=== PATIENT | male | born 1990 | race Two or more races ===

== ENCOUNTER 2021-04-25 15:26 | Inpatient (IN) | payer OTHER ==
[~2021-04-25] VITALS: Ht 193 cm; Wt 123.5 kg
[2021-04-25 16:33] LABS: Basophils # (auto) 0 10 ^3/uL (0-0.2); Basophils % (auto) 0.7 % (0.0-2.0); Eosinophils # (auto) 0.2 10 ^3/uL (0-0.8); Eosinophils % (auto) 3.3 % (0.0-7.0); Hematocrit 43.9 % (41.0-53.0); Hemoglobin 15.3 g/dL (13.5-17.5); Lymphocytes % (auto) 29.7 % (10.0-50.0); Mean Corpuscular Hemoglobin 30.1 pg (28.0-32.0); Mean Corpuscular Hgb Conc. 34.9 g/dL (32.0-36.0); Mean Corpuscular Volume 86.2 fL (80.0-100.0); Monocytes # (auto) 0.7 10 ^3/uL (0-1.3); Monocytes % (auto) 10.3 % (0.0-12.0); Neutrophils # (auto) 3.8 10 ^3/uL (1.6-8.6); Nucleated Red Blood Cells % 0.2 %; Red Blood Cells 5.09 10^6/uL (4.5-5.90); Red Cell Distribution Width 13.4 % (11.8-14.3); White Blood Cell 6.7 10^3/uL (4.4-10.8)
[2021-04-25 16:50] LABS: Albumin 4.3 g/dL (3.4-5.0); Anion Gap 8 (5-15); Blood Urea Nitrogen 14 mg/dL (7-18); Calcium 9.2 mg/dL (8.5-10.1); Carbon Dioxide 24 mmol/L (21-32); Chloride 104 mmol/L (98-107); Potassium 3.2 mmol/L (3.5-5.1); Sodium 136 mmol/L (136-145)
[2021-04-25 16:55] LABS: Alanine Aminotransferase 24 U/L (16-61); Alkaline Phosphatase 77 U/L (45-117); Aspartate Aminotransferase 22 U/L (15-37); BUN/Creatinine Ratio 12.2; Bilirubin, Total 0.6 mg/dL (0.2-1.0); GFR African American 95 mL/min; GFR Non-African American 78 mL/min; Glucose 114 mg/dL (74-106); Magnesium 2.6 mg/dL (1.6-2.6); Total Protein 9.1 g/dL (6.4-8.2)
[2021-04-25] MEDS ORDERED: ACETAMINOPHEN 325 MG TAB PO PRN (22:30)
[2021-04-25] MEDS ORDERED: HEPARIN SODIUM (PORCINE) 5000 UNITS/ML 1ML VIAL IV ONE (22:30)
[2021-04-25] MEDS ORDERED: ONDANSETRON HCL 4 MG/2 ML VIAL IV PRN (22:30)
[2021-04-25] MEDS ORDERED: HYDROcodone-ACET 5/325MG TAB PO PRN (22:30)
[2021-04-25] MEDS ORDERED: MORPHINE SULFATE INJECTION 2 MG/ML SYRG IV PRN (22:30)
[2021-04-25] MEDS ORDERED: HYDROmorphone HCL 2 MG/ML VL IV PRN (22:30)
[2021-04-25] MEDS ORDERED: NITROGLYCERIN 0.4 MG SL TAB SL PRN (22:30)
[2021-04-25 23:06] LABS: Basophils # (auto) 0 10 ^3/uL (0-0.2); Basophils % (auto) 0.5 % (0.0-2.0); Eosinophils # (auto) 0.1 10 ^3/uL (0-0.8); Eosinophils % (auto) 1.1 % (0.0-7.0); Lymphocytes % (auto) 27.4 % (10.0-50.0); Mean Corpuscular Hemoglobin 29.7 pg (28.0-32.0); Mean Corpuscular Hgb Conc. 34.2 g/dL (32.0-36.0); Mean Corpuscular Volume 87.1 fL (80.0-100.0); Monocytes # (auto) 0.8 10 ^3/uL (0-1.3); Monocytes % (auto) 10.6 % (0.0-12.0); Neutrophils # (auto) 4.5 10 ^3/uL (1.6-8.6); Neutrophils % (auto) 60.4 % (37.0-80.0); Red Blood Cells 5.06 10^6/uL (4.5-5.90); Red Cell Distribution Width 13.2 % (11.8-14.3); White Blood Cell 7.4 10^3/uL (4.4-10.8)
[2021-04-25 23:19] LABS: INR 1.05 (0.9-1.15)
[2021-04-26] MEDS: HEPARIN DRIP/D5W 100UNITS/ML 250 ML IV SCH ×4 (01:15→21:30)
[2021-04-26] MEDS: LISINOPRIL 20 MG TAB PO SCH ×2 (10:00→21:06)
[2021-04-26] MEDS: PANTOPRAZOLE 40 MG TAB PO SCH ×2 (10:00→21:06)
[2021-04-26] MEDS: amLODIPine BESYLATE 5 MG TAB PO SCH ×2 (10:00→21:05)
[2021-04-26 10:10] LABS: INR 1.1 (0.9-1.15)
[2021-04-26 18:46] LABS: INR 1.09 (0.9-1.15)
[2021-04-26 18:54] LABS: Partial Thromboplastin Time 81.4 sec (23.6-33.0)
[2021-04-26 20:00] VITALS: BP 130/78
[2021-04-26 22:00] VITALS: BP 130/78
[2021-04-27 02:06] LABS: INR 1.06 (0.9-1.15); Partial Thromboplastin Time 69.5 sec (23.6-33.0)
[2021-04-27 05:00] VITALS: BP 117/63
[2021-04-27 08:00] VITALS: BP 110/67
[2021-04-27 08:20] LABS: Basophils # (auto) 0.1 10 ^3/uL (0-0.2); Basophils % (auto) 0.8 % (0.0-2.0); Eosinophils # (auto) 0.2 10 ^3/uL (0-0.8); Eosinophils % (auto) 2.6 % (0.0-7.0); Hematocrit 43.7 % (41.0-53.0); Lymphocytes # (auto) 2.6 10 ^3/uL (0.4-5.4); Lymphocytes % (auto) 35.9 % (10.0-50.0); Mean Corpuscular Hemoglobin 29.8 pg (28.0-32.0); Mean Corpuscular Hgb Conc. 34.3 g/dL (32.0-36.0); Mean Corpuscular Volume 86.9 fL (80.0-100.0); Monocytes # (auto) 0.6 10 ^3/uL (0-1.3); Monocytes % (auto) 8.4 % (0.0-12.0); Neutrophils # (auto) 3.8 10 ^3/uL (1.6-8.6); Neutrophils % (auto) 52.3 % (37.0-80.0); Nucleated Red Blood Cells % 0.1 %; Red Blood Cells 5.03 10^6/uL (4.5-5.90); Red Cell Distribution Width 13.4 % (11.8-14.3); White Blood Cell 7.3 10^3/uL (4.4-10.8)
[2021-04-27 08:48] LABS: INR 1.1 (0.9-1.15)
[2021-04-27 08:56] LABS: Partial Thromboplastin Time 72.7 sec (23.6-33.0)
[2021-04-27] MEDS: PANTOPRAZOLE 40 MG TAB PO SCH ×2 (09:29→22:26)
[2021-04-27] MEDS: amLODIPine BESYLATE 5 MG TAB PO SCH ×2 (09:29→22:26)
[2021-04-27] MEDS: LISINOPRIL 20 MG TAB PO SCH ×2 (09:29→22:27)
[2021-04-27] MEDS ORDERED: IOHEXOL 300 MG/ML 100ML BOTTLE IJ ONE (11:41)
[2021-04-27] MEDS: HEPARIN DRIP/D5W 100UNITS/ML 250 ML IV SCH (12:23)
[2021-04-27 13:00] VITALS: BP 119/70
[2021-04-27 16:00] VITALS: BP 115/67
[2021-04-27 20:00] VITALS: BP 124/69
[2021-04-27 22:00] VITALS: BP 124/69
[2021-04-28] MEDS: HEPARIN DRIP/D5W 100UNITS/ML 250 ML IV SCH ×3 (01:25→18:23)
[2021-04-28 05:00] VITALS: BP 129/67
[2021-04-28 05:12] LABS: INR 1.1 (0.9-1.15)
[2021-04-28 05:29] LABS: Basophils # (auto) 0.1 10 ^3/uL (0-0.2); Basophils % (auto) 0.9 % (0.0-2.0); Eosinophils # (auto) 0.2 10 ^3/uL (0-0.8); Eosinophils % (auto) 2.3 % (0.0-7.0); Hemoglobin 14.6 g/dL (13.5-17.5); Lymphocytes # (auto) 3.2 10 ^3/uL (0.4-5.4); Lymphocytes % (auto) 35.3 % (10.0-50.0); Mean Corpuscular Hemoglobin 29.7 pg (28.0-32.0); Mean Corpuscular Hgb Conc. 33.9 g/dL (32.0-36.0); Mean Corpuscular Volume 87.8 fL (80.0-100.0); Monocytes # (auto) 0.7 10 ^3/uL (0-1.3); Monocytes % (auto) 7.7 % (0.0-12.0); Neutrophils # (auto) 4.8 10 ^3/uL (1.6-8.6); Neutrophils % (auto) 53.8 % (37.0-80.0); Nucleated Red Blood Cells % 0.1 %; Red Cell Distribution Width 13.7 % (11.8-14.3)
[2021-04-28 08:00] VITALS: BP 119/66
[2021-04-28] MEDS: LISINOPRIL 20 MG TAB PO SCH ×2 (10:00→22:00)
[2021-04-28] MEDS: amLODIPine BESYLATE 5 MG TAB PO SCH ×2 (10:00→22:00)
[2021-04-28] MEDS: PANTOPRAZOLE 40 MG TAB PO SCH ×2 (10:00→22:00)
[2021-04-28 11:30] LABS: INR 1.1 (0.9-1.15)
[2021-04-28 12:00] VITALS: BP 126/69
[2021-04-28 16:00] VITALS: BP 120/66
[2021-04-28 17:14] LABS: INR 1.09 (0.9-1.15)
[2021-04-28 17:25] LABS: Partial Thromboplastin Time 77.7 sec (23.6-33.0)
[2021-04-28 20:00] VITALS: BP 120/64
[2021-04-28 22:00] VITALS: BP 120/64
[2021-04-29 01:03] LABS: INR 1.1 (0.9-1.15); Partial Thromboplastin Time 63.4 sec (23.6-33.0)
[2021-04-29 05:00] VITALS: BP 106/77
[2021-04-29 05:38] LABS: Basophils # (auto) 0 10 ^3/uL (0-0.2); Basophils % (auto) 0.5 % (0.0-2.0); Eosinophils # (auto) 0.2 10 ^3/uL (0-0.8); Eosinophils % (auto) 2.5 % (0.0-7.0); Hematocrit 43.8 % (41.0-53.0); Hemoglobin 15.1 g/dL (13.5-17.5); Lymphocytes # (auto) 3.5 10 ^3/uL (0.4-5.4); Lymphocytes % (auto) 38.3 % (10.0-50.0); Mean Corpuscular Hemoglobin 30.2 pg (28.0-32.0); Mean Corpuscular Hgb Conc. 34.5 g/dL (32.0-36.0); Mean Corpuscular Volume 87.4 fL (80.0-100.0); Monocytes # (auto) 0.7 10 ^3/uL (0-1.3); Monocytes % (auto) 7.8 % (0.0-12.0); Neutrophils # (auto) 4.6 10 ^3/uL (1.6-8.6); Neutrophils % (auto) 50.9 % (37.0-80.0); Nucleated Red Blood Cells % 0.1 %; Red Blood Cells 5.01 10^6/uL (4.5-5.90); Red Cell Distribution Width 13.8 % (11.8-14.3)
[2021-04-29 05:54] LABS: BUN/Creatinine Ratio 12.8; Calcium 8.6 mg/dL (8.5-10.1); Potassium 3.4 mmol/L (3.5-5.1)
[2021-04-29] MEDS: LEVOTHYROXINE SODIUM 25 MCG TAB PO SCH (07:00)
[2021-04-29] MEDS: HEPARIN DRIP/D5W 100UNITS/ML 250 ML IV SCH (08:15)
[2021-04-29 09:00] VITALS: BP 125/74
[2021-04-29] MEDS: PANTOPRAZOLE 40 MG TAB PO SCH ×2 (10:00→21:57)
[2021-04-29] MEDS: LISINOPRIL 20 MG TAB PO SCH ×2 (11:37→21:57)
[2021-04-29] MEDS: amLODIPine BESYLATE 5 MG TAB PO SCH ×2 (11:37→21:57)
[2021-04-29] MEDS ORDERED: POTASSIUM CHL 20 Meq TABLET PO ONE ×2 (12:30)
[2021-04-29] MEDS ORDERED: SODIUM CHL 0.9% 50 ML ONE (12:48)
[2021-04-29] MEDS ORDERED: fentaNYL CITRATE 100 MCG/2 ML VL ONE ×2 (12:48→15:36)
[2021-04-29] MEDS ORDERED: MIDAZOLAM HCL 2MG/2ML 2ml VIAL (1mg/ml) ONE ×2 (12:48→15:18)
[2021-04-29] MEDS ORDERED: ANGIOMAX 250 MG VIAL IV ONE (12:48)
[2021-04-29] MEDS ORDERED: LIDOCAINE 2%HCL (LOCAL ANESTH.) INJ 20ML MDV ONE (12:49)
[2021-04-29 13:00] VITALS: BP 108/64
[2021-04-29] MEDS ORDERED: IODIXANOL 320MG/ML 100ML BTL IV ONE (13:17)
[2021-04-29 13:22] LABS: INR 1.1 (0.9-1.15); Partial Thromboplastin Time 23.1 sec (23.6-33.0)
[2021-04-29] MEDS ORDERED: diphenhdrAMINE HCL 50 MG/1 ML VL ONE (13:56)
[2021-04-29] MEDS ORDERED: HEPARIN SODIUM (PORCINE) 5000 UNITS/ML 1ML VIAL ONE ×3 (13:59→14:56)
[2021-04-29] MEDS ORDERED: HYDROmorphone HCL 2 MG/ML VL ONE (14:11)
[2021-04-29 17:00] VITALS: BP 127/76
[2021-04-29 21:30] VITALS: BP 119/71
[2021-04-29] MEDS ORDERED: ENOXAPARIN SOD 60 MG/0.6 ML SYRINGE SC ONE (22:00)
[2021-04-29] MEDS ORDERED: APIXABAN 5 MG TAB PO SCH (22:00)
[2021-04-29] MEDS: SODIUM CHLOR 0.9% PF (SALINE LOCK) 10ML VIAL/SYR IV SCH (22:08)
[2021-04-30 02:18] LABS: Urine Amorphous Crystal MOD /hpf (None Seen); Urine Bacteria FEW /hpf (None Seen); Urine Blood Negative /uL (Negative); Urine Budding Yeast OCCASIONAL /hpf (None Seen); Urine Mucus FEW (None Seen); Urine Specific Gravity 1.038 (1.001-1.035); Urine WBC 3 /hpf (0 - 3)
[2021-04-30 05:30] VITALS: BP 108/73
[2021-04-30] MEDS: LEVOTHYROXINE SODIUM 25 MCG TAB PO SCH (05:52)
[2021-04-30] MEDS: SODIUM CHLOR 0.9% PF (SALINE LOCK) 10ML VIAL/SYR IV SCH ×3 (05:53→21:48)
[2021-04-30 09:00] VITALS: BP 108/73
[2021-04-30] MEDS: APIXABAN 5 MG TAB PO SCH ×2 (10:22→21:45)
[2021-04-30] MEDS: PANTOPRAZOLE 40 MG TAB PO SCH ×2 (10:24→21:47)
[2021-04-30] MEDS: amLODIPine BESYLATE 5 MG TAB PO SCH ×2 (10:24→21:47)
[2021-04-30] MEDS: LISINOPRIL 20 MG TAB PO SCH ×2 (10:25→21:46)
[2021-04-30 13:00] VITALS: BP 114/63
[2021-04-30 17:00] VITALS: BP 118/69
[2021-04-30 22:00] VITALS: BP 111/71
[2021-05-01 04:47] VITALS: BP 102/64
[2021-05-01] MEDS: SODIUM CHLOR 0.9% PF (SALINE LOCK) 10ML VIAL/SYR IV SCH ×2 (06:17→13:53)
[2021-05-01] MEDS: LEVOTHYROXINE SODIUM 25 MCG TAB PO SCH (06:18)
[2021-05-01 08:00] VITALS: BP 110/64
[2021-05-01] MEDS: APIXABAN 5 MG TAB PO SCH (09:33)
[2021-05-01] MEDS: amLODIPine BESYLATE 5 MG TAB PO SCH (09:33)
[2021-05-01] MEDS: PANTOPRAZOLE 40 MG TAB PO SCH (09:33)
[2021-05-01] MEDS: LISINOPRIL 20 MG TAB PO SCH (09:34)
[2021-05-01 12:00] VITALS: BP 124/72
[2021-05-02 10:08] LABS: Hepatitis B Surface Antibody Positive
[2021-05-02 10:42] LABS: Hepatitis A Total Antibody Positive
[2021-05-02 13:14] LABS: Hepatitis B Core Total AB Negative; Hepatitis B Surface Antigen Negative (Negative)
[2021-05-02 13:18] LABS: Hepatitis C Antibody Positive (Negative)
== END 2021-05-01 19:00 | DRG 271 ==
LOC: EEVIPCON 15:26 → ER 15:26 → OVERFLOW 22:22 → CENTRAL 04-26 14:45
PROVIDERS: ADMIT Specialist; ATTEND Specialist
PROC: 05HA33Z Insertion of Infusion Device into Left Brachial Vein, Percutaneous Approach (ICD-10-PCS; 2021-04-26)
PROC: B54NZZA Ultrasonography of Left Upper Extremity Veins, Guidance (ICD-10-PCS; 2021-04-26)
PROC: 067N3ZZ Dilation of Left Femoral Vein, Percutaneous Approach (ICD-10-PCS; principal; 2021-04-30)
PROC: 06CN3ZZ Extirpation of Matter from Left Femoral Vein, Percutaneous Approach (ICD-10-PCS; 2021-04-30)
PROC: 06CY3ZZ Extirpation of Matter from Lower Vein, Percutaneous Approach (ICD-10-PCS; 2021-04-30)
PROC: B54CZZ3 Ultrasonography of Left Lower Extremity Veins, Intravascular (ICD-10-PCS; 2021-04-30)
PROC: 067Y3ZZ Dilation of Lower Vein, Percutaneous Approach (ICD-10-PCS; 2021-04-30)
DX: I82.413 Acute embolism and thrombosis of femoral vein, bilateral (principal); B19.10 Unspecified viral hepatitis B without hepatic coma; D68.9 Coagulation defect, unspecified; I10 Essential (primary) hypertension; E66.9 Obesity, unspecified; Z79.01 Long term (current) use of anticoagulants; K76.9 Liver disease, unspecified; Z20.822 Contact with and (suspected) exposure to COVID-19; Z68.32 Body mass index [BMI] 32.0-32.9, adult; I82.439 Acute embolism and thrombosis of unspecified popliteal vein
CPT/HCPCS: 36415; 37187; 74178; 76705; 76942; 80048; 80053; 81001; 82105; 82378; 83735; 83880; 84484; 85025; 85610; 85730; 86301; 86704; 86706; 86708; 86803; 86850; 86900; 86901; 87081; 87340; 87426; 93005; 93306; 93970; 96365; 96366; 96375; 99152; 99153; G0378; J2250; Q9967